=== PATIENT | female | born 1990 | race African-American/Black ===

== ENCOUNTER 2016-12-02 21:21 | Emergency (ER) | payer OTHER ==
[2016-12-02] MEDS ORDERED: ONDANSETRON 4 MG/2 ML VIAL IVPUSH ONE (21:30)
[2016-12-02] MEDS ORDERED: SODIUM CHLORIDE 1,000 ML IV STA (21:30)
--- NOTE | 2016-12-02 21:31 | PDOC ---
History of Present Illness - General History Source: Patient Exam Limitations: No Limitations - History of Present Illness Initial Comments: 12/02/16 21:35 The patient is a 26 year old female with no PMHx who presents to the ED via EMS with multiple episodes of vomiting and diarrhea. She reports associated nausea, headache, and weakness. She states that while at school, she had to leave class to use the bathroom and on the way back, she had difficulty walking due to weakness. She states that she got a colposcopy yesterday and took 4 pills this morning, most likely azithromycin. She believes the colposcopy caused the vomiting and diarrhea. <Mariangel Pierre - Last Filed: 12/02/16 21:35> <Tio Courtney - Last Filed: 12/02/16 22:26> - General Chief Complaint: Vomiting/Diarrhea Stated Complaint: VOMITING, DIARRHEA POST COLPOSCOPY YESTERDAY Time Seen by Provider: 12/02/16 21:24 Past History <Mariangel Pierre - Last Filed: 12/02/16 21:35> <Tio Courtney - Last Filed: 12/02/16 22:26> - Past Medical History Allergies/Adverse Reactions: Allergies Allergy/AdvReac Type Severity Reaction Status Date / Time No Known Allergies Allergy Verified 12/02/16 21:24 Home Medications: Ambulatory Orders NK [No Known Home Medication] 12/02/16 Review of Systems - Review of Systems Able to Perform ROS?: Yes Constitutional: Yes: Weakness ABD/GI: Yes: Diarrhea, Nausea, Vomiting <Mariangel Pierre - Last Filed: 12/02/16 21:35> *Physical Exam - Physical Exam General Appearance: Yes: Nourished, Appropriately Dressed. No: Apparent Distress HEENT: positive: Normal ENT Inspection Neck: positive: Supple. negative: Tender Respiratory/Chest: positive: Lungs Clear, Normal Breath Sounds. negative: Respiratory Distress Cardiovascular: positive: Regular Rhythm, Regular Rate Gastrointestinal/Abdominal: positive: Normal Bowel Sounds, Soft. negative: Tender Musculoskeletal: positive: Normal Inspection. negative: CVA Tenderness Extremity: positive: Normal Capillary Refill, Normal Inspection, Normal Range of Motion Integumentary: positive: Normal Color. negative: Rash Neurologic: positive: Fully Oriented, Alert, Normal Mood/Affect, Normal Response , Motor Strength 5/5 <Tio Courtney - Last Filed: 12/02/16 22:26> Progress Note - Progress Note Progress Note: VIRAL GASTROENTERITIS IVF/ZOFRAN/REASSESS GUZMAN PO FEELS BETTER <Tio Courtney - Last Filed: 12/02/16 22:26> *DC/Admit/Observation/Transfer - Attestations Scribe Attestion: 12/02/16 21:36 Documentation prepared by Mariangel Pierre, acting as medical office asst for Tio Courtney MD. <Mariangel Pierre - Last Filed: 12/02/16 21:35> <Tio Courtney - Last Filed: 12/02/16 22:26> Diagnosis at time of Disposition: Gastroenteritis - Discharge Dispostion Disposition: HOME Condition at time of disposition: Improved - Patient Instructions Additional Instructions: PLENTY OF FLUIDS (WATER/GATORADE) BLAND DIET, ADVANCE TOLERATED EAT FREQUENT, SMALL MEALS THROUGHOUT THE DAY RETURN IF FEVER, VOMITING, SEVERE PAIN
[2016-12-02 21:51] VITALS: BP 133/84; PULSE 98; TEMP 98.9; BMI 31.1
== END 2016-12-02 22:36 | disposition home or self-care (01) ==
LOC: FER 21:21
PROC: 3E033GC Introduction of Other Therapeutic Substance into Peripheral Vein, Percutaneous Approach (ICD-10-PCS; principal; 2016-12-02)
PROC: 3E0337Z Introduction of Electrolytic and Water Balance Substance into Peripheral Vein, Percutaneous Approach (ICD-10-PCS; 2016-12-02)
DX: K52.9 Noninfective gastroenteritis and colitis, unspecified (principal); Z98.890 Other specified postprocedural states
CPT/HCPCS: 96361; 96374; 99281-25